=== PATIENT | male | born 1995 | race Hispanic/Latino ===

== ENCOUNTER 2017-02-17 15:32 | Emergency (ER) | payer BC, MEDICAID ==
[2017-02-17 15:32] VITALS: BMI 25.7
[2017-02-17 15:41] VITALS: BP 142/98; PULSE 90; RESP 18; TEMP 98.2; O2SAT 100
--- NOTE | 2017-02-17 17:03 | ED PDOC ---
HPI: Psych/Substance Abuse Time Seen by Provider: 02/17/17 15:39 Chief Complaint (Nursing): Psychiatric Evaluation Additional Complaint(s): Abilio Hunter is a 21 year old male, with a previous medical history of depression, bipolar disorder and anxiety, who presents to the ED via EMS secondary to his friend calling after the patient threatened to commit suicide by hanging himself off a bridge. Patient reports to being in an argument with his friend who was not seeing his side of the argument which prompted his suicidal threat. Patient states he must "go to extremes" in order for his friend to listen to him. Patient currently denies any suicidal ideation, homicidal ideation, auditory hallucinations or visual hallucinations. PMD: none provided Past Medical History Vital Signs: Last Vital Signs Temp 98.2 F 02/17/17 15:38 Pulse 90 02/17/17 15:38 Resp 18 02/17/17 15:38 BP 142/98 H 02/17/17 15:38 Pulse Ox 100 02/17/17 15:38 - Medical History PMH: Anxiety, Bipolar Disorder, Depression, Hepatitis, HTN (no meds), Kidney Stones, Chronic Kidney Disease (Renal cyst, kidney stones) Denies: Diabetes, HIV, Seizures, Sexually Transmitted Disease - Surgical History Surgical History: No Surg Hx - Family History Family History: States: Unknown Family Hx - Immunization History Hx Tetanus Toxoid Vaccination: No Hx Influenza Vaccination: No Hx Pneumococcal Vaccination: No - Home Medications Home Medications: Ambulatory Orders Medication Instructions Recorded No Known Home Med 12/26/16 - Allergies Allergies/Adverse Reactions: Allergies Allergy/AdvReac Type Severity Reaction Status Date / Time No Known Allergies Allergy Verified 12/26/16 01:15 Review of Systems ROS Statement: Except As Marked, All Systems Reviewed And Found Negative Psych: Negative for: Suicidal ideation, Other (homicidal ideation, hallucinations ) Physical Exam - Reviewed Nursing Documentation Reviewed: Yes Vital Signs Reviewed: Yes - Physical Exam Appears: Positive for: Well, Non-toxic, No Acute Distress Head Exam: Positive for: ATRAUMATIC, NORMAL INSPECTION, NORMOCEPHALIC Skin: Positive for: Normal Color, Warm, DRY Eye Exam: Positive for: EOMI, Normal appearance, PERRL ENT: Positive for: Normal ENT Inspection Neck: Positive for: Normal, Painless ROM Cardiovascular/Chest: Positive for: Regular Rate, Rhythm Respiratory: Positive for: CNT, Normal Breath Sounds Gastrointestinal/Abdominal: Positive for: Normal Exam, Bowel Sounds, Soft Back: Positive for: Normal Inspection Extremity: Positive for: Normal ROM Neurologic/Psych: Positive for: Alert, Oriented - ECG O2 Sat by Pulse Oximetry: 100 (RA) Pulse Ox Interpretation: Normal Medical Decision Making Medical Decision Making: Initial Impression: crisis evaluation Initial Plan: * physical exam * crisis evaluation Scribe Attestation: Documented by Luz Wei, acting as a scribe for Irene Sotelo PA-C. Provider Scribe Attestation: All medical record entries made by the Scribe were at my direction and personally dictated by me. I have reviewed the chart and agree that the record accurately reflects my personal performance of the history, physical exam, medical decision making, and the department course for this patient. I have also personally directed, reviewed, and agree with the discharge instructions and disposition. Disposition - Clinical Impression Clinical Impression: Schizoaffective disorder Counseled Patient/Family Regarding: Studies Performed, Diagnosis, Need For Followup - Disposition Referrals: [facility] [Outside] Disposition: Routine/Home Disposition Time: 17:29 Condition: GOOD Instructions: Schizoaffective Disorder (ED)
== END 2017-02-17 17:38 | disposition home or self-care (01) ==
LOC: H.ER 15:32
DX: F25.9 Schizoaffective disorder, unspecified (principal); F31.9 Bipolar disorder, unspecified; F41.9 Anxiety disorder, unspecified; I10 Essential (primary) hypertension

== ENCOUNTER 2017-09-04 04:03 | Emergency (ER) | payer BC, MEDICAID ==
[2017-09-04 04:03] VITALS: BMI 25.7
--- NOTE | 2017-09-04 04:31 | ED PDOC ---
HPI: Psych/Substance Abuse Time Seen by Provider: 09/04/17 04:06 Chief Complaint (Nursing): Anxiety Chief Complaint (Provider): Anxiety History Per: Patient Additional Complaint(s): 21 yo male, Hx of Bipolar disorder, presents to ED BIB [facility] in order to undergo medical and psychiatric clearance for incarceration., Pt tearful at bedside, reports he is ashamed. Uses Crytal Meth daily, last at 1500. Pt report she is anxious at this time and he is not sure if it is from the drugs or the arrest. No homicidal or suicidal ideations Past Medical History Reviewed: Nursing Documentation, Vital Signs Vital Signs: Last Vital Signs Temp 97.9 F 09/04/17 04:09 Pulse 99 H 09/04/17 04:09 Resp 18 09/04/17 04:09 BP 151/72 H 09/04/17 04:09 Pulse Ox 100 09/04/17 04:09 - Medical History PMH: Anxiety, Bipolar Disorder, Depression, Hepatitis, HTN (no meds), Kidney Stones, Chronic Kidney Disease (Renal cyst, kidney stones) Denies: Diabetes, HIV, Seizures, Sexually Transmitted Disease - Family History Family History: States: Unknown Family Hx - Social History Alcohol: Social Drugs: Cannabis, Cocaine, Methamphetamine - Immunization History Hx Tetanus Toxoid Vaccination: No Hx Influenza Vaccination: No Hx Pneumococcal Vaccination: No - Home Medications Home Medications: Ambulatory Orders Medication Instructions Recorded No Known Home Med 12/26/16 - Allergies Allergies/Adverse Reactions: Allergies Allergy/AdvReac Type Severity Reaction Status Date / Time No Known Allergies Allergy Verified 09/04/17 04:09 Physical Exam - Reviewed Nursing Documentation Reviewed: Yes Vital Signs Reviewed: Yes - Physical Exam Appears: Positive for: Well, Non-toxic, No Acute Distress Head Exam: Positive for: ATRAUMATIC, NORMAL INSPECTION, NORMOCEPHALIC Skin: Positive for: Normal Color, Warm, DRY Eye Exam: Positive for: EOMI, Normal appearance, PERRL ENT: Positive for: Normal ENT Inspection Neck: Positive for: Normal, Painless ROM Cardiovascular/Chest: Positive for: Regular Rate, Rhythm Respiratory: Positive for: CNT, Normal Breath Sounds Gastrointestinal/Abdominal: Positive for: Normal Exam, Bowel Sounds, Soft Back: Positive for: Normal Inspection Extremity: Positive for: Normal ROM Neurologic/Psych: Positive for: Alert, Oriented - ECG O2 Sat by Pulse Oximetry: 100 Medical Decision Making Medical Decision Making: Ativan 1 mg IM administered Pt underwent crisis eval, see note Disposition - Clinical Impression Clinical Impression: Substance-induced anxiety disorder - Disposition Referrals: Mert Ramírez MD [Primary Care Provider] - Disposition Time: 05:20 Condition: STABLE Additional Instructions: Patient is medically and psychiatrically cleared for incarceration at this time Instructions: Methamphetamine Abuse (ED) Forms: [employer] (Uzbek)
[2017-09-04 04:46] VITALS: BP 151/72; PULSE 99; RESP 18; TEMP 97.9; O2SAT 100
== END 2017-09-04 05:29 ==
LOC: H.ER 04:03
DX: F19.94 Other psychoactive substance use, unspecified with psychoactive substance-induced mood disorder (principal); F31.9 Bipolar disorder, unspecified; F41.9 Anxiety disorder, unspecified; I10 Essential (primary) hypertension
CPT/HCPCS: 96372; 99283; J2060

== ENCOUNTER 2018-01-22 00:04 | Emergency (ER) | payer BC, MEDICAID ==
[2018-01-22 00:05] VITALS: BMI 25.7
[2018-01-22 00:23] VITALS: BP 144/94; PULSE 76; RESP 16; TEMP 98.9; O2SAT 98
[2018-01-22 01:39] LABS: BASO % 0.5 % (0.0-2.0); EOS # 0.1 K/uL (0.0-0.7); EOS % 1.7 % (0.0-4.0); HEMOGLOBIN 13.6 g/dL (12.0-18.0); LYMPH # 1.3 K/uL (1.0-4.3); LYMPH % 15.1 % (20.0-40.0); MEAN CELL VOLUME 89.2 fl (80.0-94.0); MEAN CORPUSCULAR HEMOGLOBIN 30.4 pg (27.0-31.0); MEAN CORPUSCULAR HGB CONC 34.1 g/dL (33.0-37.0); MONO # 0.6 K/uL (0.0-0.8); MONO % 7.1 % (0.0-10.0); NEUT # 6.6 K/uL (1.8-7.0); NEUT % 75.6 % (50.0-75.0); NRBC % 0.1 % (0.0-0.0); RBC 4.48 Mil/uL (4.40-5.90); RED CELL DISTRIBUTION WIDTH 14.2 % (11.5-14.5); WHITE BLOOD COUNT 8.8 K/uL (4.8-10.8)
[2018-01-22 01:45] LABS: BLOOD UREA NITROGEN 17 mg/dl (9-20); CALCIUM 9.1 mg/dL (8.4-10.2); GFR AFRICAN-AMERICAN > 60; GFR NON-AFRICAN AMERICAN > 60
--- NOTE | 2018-01-22 02:53 | ED PDOC ---
HPI: Psych/Substance Abuse Time Seen by Provider: 01/22/18 00:28 Chief Complaint (Nursing): Abdominal Pain Chief Complaint (Provider): Evaluation History Per: Patient History/Exam Limitations: no limitations Suicide/Self Injury Attempted (Context): None Additional Complaint(s): 22 year old male presents to ED with a request to have his "blood checked" for infection and is well known to this ED and provider for a history of bed- seeking behavior and IV drug abuse. Patient states he was admitted to a [facility] for 1 week for cellulitis and had an elevated WBC count during his stay. Patient states he was discharged due to lack of insurance. (-) fever, chills, nausea, vomiting, or diarrhea. Patient admits to actively engaging to IV heroin abuse. States that the cellulitis was present in the right antecubital area, which is the area in which he injects heroin. PCP: [facility] Past Medical History Reviewed: Historical Data, Nursing Documentation, Vital Signs Vital Signs: Last Vital Signs Temp 98.9 F 01/22/18 00:21 Pulse 76 01/22/18 00:21 Resp 16 01/22/18 00:21 BP 144/94 H 01/22/18 00:21 Pulse Ox 98 01/22/18 00:21 - Medical History PMH: Anxiety, Bipolar Disorder, Depression, Hepatitis, HTN (no meds), Kidney Stones, Chronic Kidney Disease (Renal cyst, kidney stones) Denies: Diabetes, HIV, Seizures, Sexually Transmitted Disease - Family History Family History: States: Unknown Family Hx - Social History Current smoker - smoking cessation education provided: Yes Ex-Smoker (has not smoked in the last 12 months): No Alcohol: Other ((+) drinker) Drugs: Opiates - Immunization History Hx Tetanus Toxoid Vaccination: No Hx Influenza Vaccination: No Hx Pneumococcal Vaccination: No - Home Medications Home Medications: Ambulatory Orders Medication Instructions Recorded No Known Home Med 12/26/16 - Allergies Allergies/Adverse Reactions: Allergies Allergy/AdvReac Type Severity Reaction Status Date / Time No Known Allergies Allergy Verified 01/22/18 00:21 Review of Systems ROS Statement: Except As Marked, All Systems Reviewed And Found Negative Constitutional: Negative for: Fever, Chills Gastrointestinal: Negative for: Nausea, Vomiting, Diarrhea Physical Exam - Reviewed Nursing Documentation Reviewed: Yes Vital Signs Reviewed: Yes - Physical Exam Appears: Positive for: Non-toxic, No Acute Distress Skin: Positive for: Warm, Dry. Negative for: Normal Color (multiple IV track gutierrez to the neck and bilateral arms) Cardiovascular/Chest: Positive for: Regular Rate, Rhythm Respiratory: Positive for: Normal Breath Sounds. Negative for: Respiratory Distress Gastrointestinal/Abdominal: Positive for: Soft. Negative for: Tenderness Neurologic/Psych: Positive for: Alert, Oriented. Negative for: Motor/Sensory Deficits - Laboratory Results Result Diagrams: 01/22/18 01:30 01/22/18 01:30 - ECG O2 Sat by Pulse Oximetry: 98 (RA) Pulse Ox Interpretation: Normal Medical Decision Making Medical Decision Makin Initial impression: history of IV drug abuse Initial plan: * EtOH serum * Labs * UDrug screen * Blood culture 0318 Labs reviewed: no clinically significant abnormalities. Patient is stable for discharge home. Dx: heroin abuse Scribe Attestation: Documented by Alyx Jesus acting as a scribe Beni Savage MD. Scribe Attestation: All medical record entries made by the Scribe were at my direction and personally dictated by me. I have reviewed the chart and agree that the record accurately reflects my personal performance of the history, physical exam, medical decision making, and the department course for this patient. I have also personally directed, reviewed, and agree with the discharge instructions and disposition. Disposition - Clinical Impression Clinical Impression: Heroin abuse - Disposition Disposition: Routine/Home Disposition Time: 03:19 Condition: STABLE Instructions: Opioid Use Disorder Forms: [employer] (Khmer)
== END 2018-01-22 05:16 | disposition home or self-care (01) ==
LOC: H.ER 00:04
DX: F11.10 Opioid abuse, uncomplicated (principal); F31.9 Bipolar disorder, unspecified; F41.9 Anxiety disorder, unspecified; I10 Essential (primary) hypertension

== ENCOUNTER 2018-01-22 06:03 | Emergency (ER) | payer MEDICAID ==
[2018-01-22 06:03] VITALS: BMI 25.7
--- NOTE | 2018-01-22 07:11 | ED PDOC ---
HPI: Psych/Substance Abuse Time Seen by Provider: 01/22/18 06:25 Chief Complaint (Nursing): Substance Abuse Chief Complaint (Provider): Suicidal Ideation History Per: Patient History/Exam Limitations: no limitations Suicide/Self Injury Attempted (Context): None Additional Complaint(s): 22 year old male presents to ED with complaints of suicidal ideation and has a past medical history of IV drug abuse. Patient is known to the ED and provider and was discharged 2 hours ago after a request to have his "blood checked". Patient believes he is going through withdrawal. PCP: None Past Medical History Reviewed: Historical Data, Nursing Documentation, Vital Signs Vital Signs: Last Vital Signs Temp 98.6 F 01/22/18 06:18 Pulse 86 01/22/18 06:18 Resp 16 01/22/18 06:18 BP Pulse Ox 100 01/22/18 06:18 - Medical History PMH: Anxiety, Bipolar Disorder, Depression, Hepatitis, HTN (no meds), Kidney Stones, Chronic Kidney Disease (Renal cyst, kidney stones) Denies: Diabetes, HIV, Seizures, Sexually Transmitted Disease - Family History Family History: States: Unknown Family Hx - Social History Current smoker - smoking cessation education provided: Yes Alcohol: Other ((+) drinker) Drugs: Opiates - Immunization History Hx Tetanus Toxoid Vaccination: No Hx Influenza Vaccination: No Hx Pneumococcal Vaccination: No - Home Medications Home Medications: Ambulatory Orders Medication Instructions Recorded No Known Home Med 12/26/16 - Allergies Allergies/Adverse Reactions: Allergies Allergy/AdvReac Type Severity Reaction Status Date / Time No Known Allergies Allergy Verified 01/22/18 06:18 Review of Systems ROS Statement: Except As Marked, All Systems Reviewed And Found Negative Psych: Positive for: Suicidal ideation Physical Exam - Reviewed Nursing Documentation Reviewed: Yes Vital Signs Reviewed: Yes - Physical Exam Appears: Positive for: Non-toxic, No Acute Distress Head Exam: Positive for: ATRAUMATIC, NORMOCEPHALIC Skin: Positive for: Normal Color, Warm, Dry Eye Exam: Positive for: EOMI, Normal appearance, PERRL ENT: Positive for: Normal ENT Inspection Neck: Positive for: Normal, Painless ROM Cardiovascular/Chest: Positive for: Regular Rate, Rhythm. Negative for: Bradycardia Respiratory: Positive for: Normal Breath Sounds. Negative for: Respiratory Distress Gastrointestinal/Abdominal: Positive for: Normal Exam, Soft. Negative for: Tenderness Back: Positive for: Normal Inspection Extremity: Positive for: Normal ROM. Negative for: Deformity Neurologic/Psych: Positive for: Alert, Oriented. Negative for: Motor/Sensory Deficits - ECG O2 Sat by Pulse Oximetry: 100 (RA) Pulse Ox Interpretation: Normal Medical Decision Making Medical Decision Makin Initial impression: malingering disorder in setting of drug abuse Initial plan: * crisis eval 0700 Patient will be signed out to Dr. Mayer pending crisis evaluation. Scribe Attestation: Documented by Alyx Jesus acting as a scribe Beni Savage MD. Scribe Attestation: All medical record entries made by the Scribe were at my direction and personally dictated by me. I have reviewed the chart and agree that the record accurately reflects my personal performance of the history, physical exam, medical decision making, and the department course for this patient. I have also personally directed, reviewed, and agree with the discharge instructions and disposition. Disposition - Clinical Impression Clinical Impression: Substance addiction - Patient ED Disposition Is Patient to be Admitted: Transfer of Care - Disposition Referrals: [facility] [Outside] Disposition: Transfer of Care Disposition Time: 07:00 Condition: STABLE Instructions: Drug Abuse and Drug Addiction (DC) Forms: FP Complete (Peruvian) Patient Signed Over To: Zac Mayer Handoff Comments: pending crisis evaluation
--- NOTE | 2018-01-22 07:13 | ED PDOC ---
- ECG O2 Sat by Pulse Oximetry: 100 (RA) - Progress Re-evaluation Time: :23 Condition: Re-examined (Awake alert oriented x 3 denies SI/HI) Medical Decision Making Medical Decision Making: Time: 0700 --Patient was endorsed to provider from Dr. Beni Savage. Pending crisis evaluation. Scribe Attestation: Documented by Eve Wall, acting as a scribe for Zac Mayer MD. Provider Scribe Attestation: All medical record entries made by the Scribe were at my direction and personally dictated by me. I have reviewed the chart and agree that the record accurately reflects my personal performance of the history, physical exam, medical decision making, and the department course for this patient. I have also personally directed, reviewed, and agree with the discharge instructions and disposition. Disposition - Clinical Impression Clinical Impression: Substance addiction - POA Present On Arrival: None - Disposition Referrals: [facility] [Outside] Disposition: Routine/Home Disposition Time: :23 Condition: STABLE Instructions: Drug Abuse and Drug Addiction (DC) Forms: [employer] (Northern Irish)
[2018-01-22 09:30] VITALS: BP 120/70; RESP 20
[2018-01-22 09:35] VITALS: PULSE 74; TEMP 98.6
[2018-01-23 04:36] VITALS: O2SAT 100
== END 2018-01-22 09:35 | disposition home or self-care (01) ==
LOC: H.ER 06:03
DX: R45.851 Suicidal ideations (principal); F19.10 Other psychoactive substance abuse, uncomplicated; F31.9 Bipolar disorder, unspecified; F41.9 Anxiety disorder, unspecified; I10 Essential (primary) hypertension

== ENCOUNTER 2018-01-22 15:22 | Inpatient (IN) | payer MEDICAID ==
[2018-01-22 15:22] VITALS: BMI 25.7
[2018-01-22 17:20] VITALS: O2SAT 99
--- NOTE | 2018-01-22 19:41 | ED PDOC ---
HPI: Psych/Substance Abuse Time Seen by Provider: 01/22/18 18:30 Chief Complaint (Nursing): Psychiatric Evaluation History Per: Patient Additional Complaint(s): Pt. states today he developed visual hallucinations. States he sees spider webs and "extra rooms." Reports that his friend also found him attmepting to cut his forearm with a knife. Pt. states he was unsuccessful. Pt. is still feeling suicidal. Denies HI, chest pain, SOB, abd pain, fever, headache, injury. Past Medical History Reviewed: Historical Data, Nursing Documentation, Vital Signs Vital Signs: Last Vital Signs Temp 98.4 F 01/22/18 17:15 Pulse 88 01/22/18 17:15 Resp 18 01/22/18 17:15 BP 136/87 01/22/18 17:15 Pulse Ox 99 01/22/18 17:15 - Medical History PMH: Anxiety, Bipolar Disorder, Depression, Hepatitis, HTN (no meds), Kidney Stones, Chronic Kidney Disease (Renal cyst, kidney stones) Denies: Diabetes, HIV, Seizures, Sexually Transmitted Disease - Surgical History Surgical History: No Surg Hx - Family History Family History: States: No Known Family Hx - Immunization History Hx Tetanus Toxoid Vaccination: No Hx Influenza Vaccination: No Hx Pneumococcal Vaccination: No - Home Medications Home Medications: Ambulatory Orders Medication Instructions Recorded No Known Home Med 12/26/16 - Allergies Allergies/Adverse Reactions: Allergies Allergy/AdvReac Type Severity Reaction Status Date / Time No Known Allergies Allergy Verified 01/22/18 06:18 Review of Systems ROS Statement: Except As Marked, All Systems Reviewed And Found Negative Physical Exam - Reviewed Nursing Documentation Reviewed: Yes Vital Signs Reviewed: Yes - Physical Exam Appears: Positive for: Well, Non-toxic, No Acute Distress Head Exam: Positive for: ATRAUMATIC, NORMAL INSPECTION, NORMOCEPHALIC Skin: Positive for: Normal Color, Warm. Negative for: Rash Eye Exam: Positive for: EOMI, Normal appearance, PERRL ENT: Positive for: Normal ENT Inspection Neck: Positive for: Normal, Painless ROM Cardiovascular/Chest: Positive for: Regular Rate, Rhythm Respiratory: Positive for: CNT, Normal Breath Sounds Gastrointestinal/Abdominal: Positive for: Normal Exam, Soft. Negative for: Tenderness Back: Positive for: Normal Inspection Extremity: Positive for: Normal ROM Neurologic/Psych: Positive for: Alert, Oriented, Mood/Affect (calm, cooperative) . Negative for: Aphasia, Facial Droop - ECG O2 Sat by Pulse Oximetry: 99 - Progress ED Course And Treament: Ana perea, 1:1 ordered. Pt. evaluated by ana Kwong, who spoke with Dr. Buckley who requests pt. to be admitted. Pt had blood work done earlier today which was normal. Drug screen, serum alcohol, UA ordered. Disposition - Clinical Impression Clinical Impression: Bipolar affective disorder - Patient ED Disposition Is Patient to be Admitted: Yes - Disposition Disposition Time: 19:44 Condition: STABLE Forms: [employer] (Pashto)
[2018-01-22 19:47] LABS: URINE AMORPHOUS SEDIMENT FEW /ul (<OCC); URINE BILIRUBIN NEGATIVE (NEGATIVE); URINE BLOOD NEGATIVE (NEGATIVE); URINE CLARITY TURBID (Clear); URINE COLOR YELLOW (YELLOW); URINE GLUCOSE (UA) NEG (Normal); URINE LEUKOCYTE ESTERASE NEG Leu/uL (Negative); URINE PROTEIN NEGATIVE (NEGATIVE); URINE UROBILINOGEN 0.2-1.0 mg/dL (0.2-1.0)
[2018-01-22 19:59] LABS: BARBITURATES, UR NEGATIVE (NEGATIVE); BENZODIAZEPINES, UR NEGATIVE (NEGATIVE); OPIATES, UR POSITIVE (NEGATIVE); PHENCYCLIDINE, UR NEGATIVE (NEGATIVE)
[2018-01-22] MEDS ORDERED: Alum-Mag Hydrox-Simethicone Susp (30 mL) PO PRN (22:15)
[2018-01-22] MEDS ORDERED: Magnesium Hydroxide Susp 30 ml UD PO PRN (22:15)
[2018-01-22] MEDS ORDERED: DiphenhydrAMINE 50 mg/ml Inj IM PRN (22:15)
--- NOTE | 2018-01-23 04:16 | PCM.BM ---
<Marline Pearce - Last Filed: 01/23/18 04:14> Treatment Plan Problems - Problems identified on initial assessmt Feelings of Worthlessness Date Initiated: 01/23/18 Time Initiated: 04:14 Assessment reference: NA Status: Active Treatment assets and liabiliti Patient Assests: cooperative, physically healthy, negotiates basic needs Patient Liabilities: poor support system, substance abuse, legal issue - Milieu Protocol Maintain good personal hygiene: daily Assist patient to perform ADL's, every shift Encourage regular showers, every shift Remind patient to perform daily oral care Conduct patient checks and document Observation sheet: Q15 minutes Maintain personal safety: every shift Educate patient to report safety concerns to staff, every shift Monitor environment for contraband/sharps Medication safety: Monitor for expected outcome, potential side effects: every shift, Assess barriers to learning: every shift, Assess readiness for medication education: every shift <ValarieBrandoRonna - Last Filed: 01/25/18 12:02> Treatment assets and liabiliti Patient Assests: adapts well, cooperative, resourceful, self-reliant, ADL independent, physically healthy, negotiates basic needs, cognitively intact ( some delays) Patient Liabilities: live alone (pt. currently/recently homeless), financial problems, poor support system, relationship conflicts, substance abuse, legal issue Family Contact Family involvement: Family/SO is involved (limited) Family contact: Patient declines to allow family contact at present - Goals for Treatment Patient goals for treatment: Patient to continue stabilization on 3NP through medication management and group/supportive therapy. Patient to be encouraged to attend groups regularly to promote self-awareness, compliance, and improve insight, coping skills, and self-esteem. Patient to be provided with referral for appropriate level of aftercare to reduce risk of future hospitalizations and ensure safety in the community. Pt ambivalent towards inpatient rehab referrals but agreeable. pt. to be provided with referral fo [facility] upon discharge is rehab bed cannot be secured. Pt. expressed understanding of the above. Discharge/Continuing Care - Education Needs Education Needs: Patient Medication, Patient Diagnosis/Disease Process, Patient Coping Skills, Patient Community resources, Patient Aftercare Safety Plan - Discharge Discharge Criteria: Tolerates medication w/o severe side effects, Free of Suicidal thoughts, Normal sleep pattern, Ability to care for self, No longer exhibiting s/s of withdrawal, Reduction of target symptoms Discharge to:: Skilled Nursing, Substance Abuse Rehab (referrals to be faxed), Other ( referrals to OPS/[facility] to be sent if rehab bed cannot be secured) <Vaibhav Nelson - Last Filed: 01/28/18 14:08> Discharge/Continuing Care - Additional Comments 01/28/18 14:08 Pt offered no questions or complaints at this time. Pt is discharged focused but agreeable to stay through the weekend. - Treatment Team Participation Discussed with Family/SO: No Was Patient/Family/SO present at Treatment Team Meeting: Yes <Andre Oconnell - Last Filed: 01/29/18 09:42> - Diagnosis (1) Depression Status: Acute Interventions: pharmacotherapy 01/29/18 09:42
[2018-01-23 06:42] LABS: T4 10.7 ug/dl (5.5-11.0)
[2018-01-23] MEDS: Multivitamin With Minerals Tab PO SCH (09:43)
--- NOTE | 2018-01-23 15:01 | PCM.PSYCH ---
Initial Psychiatric Evaluation - Initial Psychiatric Evaluation Type of Admission: Voluntary Legal Status: Capacity Chief Complaint (in patient's own words): I am depressed and suicidal Patient's Reaction to Hospitalization: pt requested help History of Present Illness and Precipitating Events: pt is 22 ys old male with previous diagnosis of polysubstance use and bipolar disorder, non compliant with medication or follow up, pt relapsed on opiates, cocaine and cannabis, starting feeling increasingly depressed, on day of evaluation, he started experiencing suicidal ideations with plan to jump off the bridge came to ER seeking help pt on unit depressed anhedonic with low energy, expressing passive suicidal ideations without active plan or intent on the unit denied homicidal ideations, denied command hallucinations Current Medications: Active Medications Generic Name Dose Route Start Last Admin Trade Name Freq PRN Reason Stop Dose Admin Acetaminophen 650 mg 01/22/18 22:15 Tylenol 325mg Tab PO Q4 PRN Pain, moderate (4-7) Al Hydrox/Mg Hydrox/Simethicone 30 ml 01/22/18 22:15 Maalox Plus 30 Ml PO Q4 PRN Dyspepsia Bupropion HCl 75 mg 01/24/18 09:00 Wellbutrin PO DAILY ЕЛЕНА Clonidine HCl 0.1 mg 01/23/18 01:00 01/23/18 09:43 Catapres PO 01/26/18 01:01 0.1 mg Q8 ЕЛЕНА Administration Diphenhydramine HCl 50 mg 01/22/18 22:15 Benadryl IM Q6 PRN Extrapyramidal S/S Unable PO Diphenhydramine HCl 50 mg 01/22/18 22:15 Benadryl PO Q6 PRN Extrapyramidal Symptoms Diphenhydramine HCl 50 mg 01/22/18 23:34 Benadryl PO HS PRN Sleep Haloperidol 5 mg 01/22/18 22:15 Haldol PO Q4 PRN Agitation Haloperidol Lactate 5 mg 01/22/18 22:15 Haldol IM Q4 PRN Agitation, Unable to Take PO Ibuprofen 400 mg 01/22/18 22:15 Motrin Tab PO Q6 PRN pain of 7-10 Lorazepam 2 mg 01/22/18 22:15 Ativan IM Q4 PRN Anxiety/Agitation,Unable PO Lorazepam 1 mg 01/22/18 22:15 Ativan PO Q4 PRN Anxiety/Agitation Magnesium Hydroxide 30 ml 01/22/18 22:15 Milk Of Magnesia PO HS PRN Constipation Multivitamins/Minerals 1 tab 01/23/18 09:00 01/23/18 09:43 Therapeutic-M Tab PO 1 tab DAILY ЕЛЕНА Administration Quetiapine Fumarate 100 mg 01/23/18 22:00 Seroquel PO HS ЕЛЕНА Past Psychiatric History - Past Psychiatric History Explanation of prior treatment: multiple inpatient hospitalizations, hx of non compliance History of ETOH/Drug Use: hx of cocaine, cannabis, opiate use Pertinent Medical Hx (Current Medical&Sleep Prob, Allergies): Allergies Allergy/AdvReac Type Severity Reaction Status Date / Time No Known Allergies Allergy Verified 01/22/18 06:18 No Known Home Med 12/26/16 Mental Status Examination - Personal Presentation Personal Presentation: Looks stated age - Affect Affect: Constricted, Depressed - Motor Activity Motor Activity: Psychomotor Retardation - Reliability in Providing Information Reliability in Providing Information: Poor, due to altered mood - Speech Speech: Tangential - Mood Mood: Depressed, Anxious - Formal Thought Process Formal Thought Process: Circumstantial - Hallucinations/Delusions Additional comments: denied perceptual disturbances, non elicited - Obsessions/Compulsions Obsessions: No Compulsions: No - Cognitive Functions Orientation: Person, Place Abstract Thinking: [place] Judgement: Imparied, as evidence by: Poor judgement, Imparied, as evidence by: Lack of insight into illness - Risk Risk: Withdrawal, Diminished functioning - Strength & Assets Inventory Strength & Assets Inventory: Life experience - Limitations Additional comments: poor compliance DSM 5 DX - DSM 5 DSM 5 Diagnosis: 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
--- NOTE | 2018-01-23 17:20 | CP.PCM.CON ---
History of Present Illness - History of Present Illness History of Present Illness: CC: Suicidal ideation This is a 22 year old male presenting to the ED with suicidal ideations, visual hallucinations, and was found attempting to cut his forearm with a knife ( unsuccessfully. ) According to the chart the patient has history of hepatitis, polysubstance abuse with opiates, cocaine, and cannabis, hypertension, with history of nephrolithiasis. I attempted to see the patient in his room, however he is refusing to give any history or physical exam. He refused to give any review of systems. Review of Systems - Review of Systems Review of Systems: Patient refused to give review of systems and was uncooperative. Past Patient History - Infectious Disease Hx of Infectious Diseases: None - Past Medical History & Family History Past Medical History?: Yes - Past Social History Smoking Status: Light Smoker < 10 Cigarettes Daily - CARDIAC Hx Cardiac Disorders: No Hx Hypertension: Yes (no meds) - PULMONARY Hx Tuberculosis: No - NEUROLOGICAL HX Cerebrovascular Accident: No Hx Seizures: No - HEENT Hx HEENT Problems: No Other/Comment: wears contact unable to see well - RENAL Hx Chronic Kidney Disease: Yes (Renal cyst, kidney stones) Hx Kidney Stones: Yes - ENDOCRINE/METABOLIC Hx Endocrine Disorders: No - HEMATOLOGICAL/ONCOLOGICAL Hx Cancer: No Hx Human Immunodeficiency Virus (HIV): No - INTEGUMENTARY Hx Dermatological Problems: No - MUSCULOSKELETAL/RHEUMATOLOGICAL Hx Musculoskeletal Disorders: Yes (FX lt hand) - GASTROINTESTINAL Hx Gastrointestinal Disorders: No - GENITOURINARY/GYNECOLOGICAL Hx Sexually Transmitted Disorders: No - PSYCHIATRIC Hx Substance Use: Yes - SURGICAL HISTORY Hx Surgeries: Yes Other/Comment: RENAL CYST-STENT PLACEMENT x3, lithotripsy - ANESTHESIA Hx Anesthesia: Yes Hx Anesthesia Reactions: No Meds Allergies/Adverse Reactions: Allergies Allergy/AdvReac Type Severity Reaction Status Date / Time No Known Allergies Allergy Verified 01/22/18 06:18 - Medications Medications: Current Medications Acetaminophen (Tylenol 325mg Tab) 650 mg PO Q4 PRN PRN Reason: Pain, moderate (4-7) Al Hydrox/Mg Hydrox/Simethicone (Maalox Plus 30 Ml) 30 ml PO Q4 PRN PRN Reason: Dyspepsia Bupropion HCl (Wellbutrin) 75 mg PO DAILY ЕЛЕНА Clonidine HCl (Catapres) 0.1 mg PO Q8 ЕЛЕНА Stop: 01/26/18 01:01 Last Admin: 01/23/18 09:43 Dose: 0.1 mg Diphenhydramine HCl (Benadryl) 50 mg IM Q6 PRN PRN Reason: Extrapyramidal S/S Unable PO Diphenhydramine HCl (Benadryl) 50 mg PO Q6 PRN PRN Reason: Extrapyramidal Symptoms Diphenhydramine HCl (Benadryl) 50 mg PO HS PRN PRN Reason: Sleep Gabapentin (Neurontin) 100 mg PO TID ЕЛЕНА Haloperidol (Haldol) 5 mg PO Q4 PRN PRN Reason: Agitation Haloperidol Lactate (Haldol) 5 mg IM Q4 PRN PRN Reason: Agitation, Unable to Take PO Ibuprofen (Motrin Tab) 400 mg PO Q6 PRN PRN Reason: pain of 7-10 Lorazepam (Ativan) 2 mg IM Q4 PRN PRN Reason: Anxiety/Agitation,Unable PO Lorazepam (Ativan) 1 mg PO Q4 PRN PRN Reason: Anxiety/Agitation Magnesium Hydroxide (Milk Of Magnesia) 30 ml PO HS PRN PRN Reason: Constipation Multivitamins/Minerals (Therapeutic-M Tab) 1 tab PO DAILY [facility] Last Admin: 01/23/18 09:43 Dose: 1 tab Quetiapine Fumarate (Seroquel) 100 mg PO HS [facility] Physical Exam - Additional Findings Additional findings: Unable to be examined as patient refused exam and is uncooperative. Results - Vital Signs Recent Vital Signs: Last Vital Signs Temp 97.7 F 01/23/18 09:00 Pulse 81 01/23/18 09:43 Resp 18 01/23/18 09:00 BP 130/99 H 01/23/18 09:43 Pulse Ox 99 01/22/18 19:54 - Labs Labs: Laboratory Results - last 24 hr 01/22/18 01/22/18 01/22/18 19:35 19:35 19:40 Hemoglobin A1c Triglycerides Cholesterol LDL Cholesterol Direct HDL Cholesterol Thyroxine (T4) TSH 3rd Generation Urine Color Yellow Urine Clarity Turbid Urine pH 7.0 Ur Specific [place] 1.015 Urine Protein Negative Urine Glucose (UA) Neg Urine Ketones Negative Urine Blood Negative Urine Nitrate Negative Urine Bilirubin Negative Urine Urobilinogen 0.2-1.0 Ur Leukocyte Esterase Neg Urine RBC (Auto) 4 H Urine Microscopic WBC 18 H Amorphous Sediment Few H Urine Opiates Screen Positive H Urine Methadone Screen Negative Ur Barbiturates Screen Negative Ur Phencyclidine Scrn Negative Ur Amphetamines Screen Negative U Benzodiazepines Scrn Negative U Oth Cocaine Metabols Positive H U Cannabinoids Screen Positive H Alcohol, Quantitative < 10 01/23/18 01/23/18 05:30 05:30 Hemoglobin A1c 5.5 Triglycerides 51 Cholesterol 176 LDL Cholesterol Direct 86 HDL Cholesterol 59 Thyroxine (T4) 10.7 TSH 3rd Generation 0.22 L Urine Color Urine Clarity Urine pH Ur Specific [place] Urine Protein Urine Glucose (UA) Urine Ketones Urine Blood Urine Nitrate Urine Bilirubin Urine Urobilinogen Ur Leukocyte Esterase Urine RBC (Auto) Urine Microscopic WBC Amorphous Sediment Urine Opiates Screen Urine Methadone Screen Ur Barbiturates Screen Ur Phencyclidine Scrn Ur Amphetamines Screen U Benzodiazepines Scrn U Oth Cocaine Metabols U Cannabinoids Screen Alcohol, Quantitative Assessment & Plan - Assessment and Plan (Free Text) Plan: This is a 22 year old male presenting to the ED with suicidal ideations, visual hallucinations, and was found attempting to cut his forearm with a knife ( unsuccessfully. ) According to the chart the patient has history of hepatitis, polysubstance abuse with opiates, cocaine, and cannabis, hypertension, with history of nephrolithiasis. I attempted to see the patient in his room, however he is refusing to give any history or physical exam. He refused to give any review of systems. Hypertension 130/99 patient recieving clonidine continue to monitor cocaine induced mood disorder with depressive features opite use disorder cocaine use disorder cannabis use disorder hx of bipolar disorder
[2018-01-24] MEDS: Multivitamin With Minerals Tab PO SCH (09:00)
--- NOTE | 2018-01-24 15:35 | PCM.PYCHPN ---
Psychiatric Progress Note - Psychiatric Progress Note Patient seen today, length of contact: pt evaluated discussed with team chart reviewed Patient Chief Complaint: I am very anxious Problems Identified/Issues Discussed: pt on evaluation, reported anxious mood , requesting klonopin , discussed with pt the habit forming effect of klonopin, discussed increasing neurontin pt also presenting with irritable affect and reporting racing thoughts, will gradually uptitrate seroquel pt continues to be depressed, with passive suicidal ideations, denied active plan on the unit, denied homicidal ideations, or command hallucinations motivational therapy provided Medical Problems: multiple inpatient hospitalizations, hx of non compliance DSM 5 Symptoms Update: polysubstance use disorder bipolar disorder Medication Change: Yes (increase seroquel) Medical Record Reviewed: Yes Mental Status Examination - Cognitive Function Orientation: Person, Place Attention: Poor Concentration: Poor Association: WNL Fund of Knowledge: Poor Decription of patient's judgement and insights: poor insight and judgment - Mood Mood: Depressed, Anxious - Affect Affect: Constricted, Depressed - Speech Speech: Loud - Formal Thought Process Formal Thought Process: Circumstantial Psychotic Thoughts and Behaviors: pt denied perceptual disturbances, non elicited - Suicidal Ideation Suicidal Ideation: No - Homicidal Ideation Homicidal Ideation: No Goal/Treatment Plan - Goal/Treatment Plan Need for Continued Stay: Severe depression anxiety, Discharge may exacerbated symptoms Progress Toward Problem(s) and Goals/Treatment Plan: clonidine protocol for opiate withdrawal increase wellbutrin 150mg daily for depression increase neurontin 200mg tid seroquel 200mg qhs motivatonal and group therapy
[2018-01-25] MEDS: buPROPion SR 150 MG TABLET PO SCH (09:21)
[2018-01-25] MEDS: Multivitamin With Minerals Tab PO SCH (09:21)
--- NOTE | 2018-01-25 15:21 | PCM.PYCHPN ---
Psychiatric Progress Note - Psychiatric Progress Note Patient seen today, length of contact: pt evaluated discussed with team chart reviewed Patient Chief Complaint: I am still tired Problems Identified/Issues Discussed: pt on evaluation, continues to be depressed anhedonic, low energy pt also presenting with irritable affect and reporting racing thoughts, will gradually uptitrate seroquel ptdenied any current suicidal ideations denied homicidal ideations, or command hallucinations motivational therapy provided Medical Problems: multiple inpatient hospitalizations, hx of non compliance DSM 5 Symptoms Update: mood disorder due to substance use bipolar disorder Medication Change: Yes (increase seroquel) Medical Record Reviewed: Yes Mental Status Examination - Cognitive Function Orientation: Person, Place Attention: Poor Concentration: Poor Association: WNL Fund of Knowledge: Poor Decription of patient's judgement and insights: poor insight and judgment - Mood Mood: Depressed, Anxious - Affect Affect: Constricted, Depressed - Speech Speech: Loud - Formal Thought Process Formal Thought Process: Circumstantial Psychotic Thoughts and Behaviors: pt denied perceptual disturbances, non elicited - Suicidal Ideation Suicidal Ideation: No - Homicidal Ideation Homicidal Ideation: No Goal/Treatment Plan - Goal/Treatment Plan Need for Continued Stay: Severe depression anxiety, Discharge may exacerbated symptoms Progress Toward Problem(s) and Goals/Treatment Plan: clonidine protocol for opiate withdrawal wellbutrin 150mg daily for depression neurontin 200mg tid increase seroquel 200mg qhs motivatonal and group therapy
[2018-01-26] MEDS: buPROPion SR 150 MG TABLET PO SCH (09:17)
[2018-01-26] MEDS: Multivitamin With Minerals Tab PO SCH (09:18)
--- NOTE | 2018-01-26 15:19 | PCM.PYCHPN ---
Psychiatric Progress Note - Psychiatric Progress Note Patient seen today, length of contact: pt evaluated discussed with team chart reviewed Patient Chief Complaint: I want to do outpatient reahab Problems Identified/Issues Discussed: pt evaluated with treatment team, reported feeling less depressed, pt less irritable , reported racing thoughts are less no side effects of medications reported, motivational therapy provided and discussed with pt need to join rehab on discharge pt agreeable for outpatient [facility] program pt denied any current suicidal ideations denied homicidal ideations, or command hallucinations Medical Problems: multiple inpatient hospitalizations, hx of non compliance DSM 5 Symptoms Update: bipolar disorder polysubstance use disorder Medication Change: No (increase seroquel) Medical Record Reviewed: Yes Mental Status Examination - Cognitive Function Orientation: Person, Place Attention: WNL Concentration: Poor Association: WNL Fund of Knowledge: Poor Decription of patient's judgement and insights: poor insight and judgment - Mood Mood: Depressed, Anxious - Affect Affect: Constricted, Depressed - Speech Speech: Loud - Formal Thought Process Formal Thought Process: Circumstantial Psychotic Thoughts and Behaviors: pt denied perceptual disturbances, non elicited - Suicidal Ideation Suicidal Ideation: No - Homicidal Ideation Homicidal Ideation: No Goal/Treatment Plan - Goal/Treatment Plan Need for Continued Stay: Severe depression anxiety, Discharge may exacerbated symptoms Progress Toward Problem(s) and Goals/Treatment Plan: c wellbutrin 150mg daily for depression neurontin 200mg tid seroquel 300mg qhs motivatonal and group therapy
[2018-01-27] MEDS: buPROPion SR 150 MG TABLET PO SCH (10:16)
[2018-01-27] MEDS: Multivitamin With Minerals Tab PO SCH (10:16)
--- NOTE | 2018-01-27 15:28 | PCM.PYCHPN ---
Psychiatric Progress Note - Psychiatric Progress Note Patient seen today, length of contact: pt evaluated discussed with team chart reviewed Patient Chief Complaint: I am feeling better Problems Identified/Issues Discussed: pt evaluated, more visible on the unit, reported better mood, presenting with brighter affect pt denied any current suicidal ideations denied homicidal ideations, or command hallucinations Medical Problems: multiple inpatient hospitalizations, hx of non compliance DSM 5 Symptoms Update: bipolar disorder polysubstance use disorder Medication Change: No Medical Record Reviewed: Yes Mental Status Examination - Cognitive Function Orientation: Person, Place Attention: WNL Concentration: WNL Association: WNL Fund of Knowledge: Poor Decription of patient's judgement and insights: poor insight and judgment - Mood Mood: Anxious - Affect Affect: Constricted, Depressed - Speech Speech: Loud - Formal Thought Process Formal Thought Process: Circumstantial Psychotic Thoughts and Behaviors: pt denied perceptual disturbances, non elicited - Suicidal Ideation Suicidal Ideation: No - Homicidal Ideation Homicidal Ideation: No Goal/Treatment Plan - Goal/Treatment Plan Need for Continued Stay: Severe depression anxiety, Discharge may exacerbated symptoms Progress Toward Problem(s) and Goals/Treatment Plan: c wellbutrin 150mg daily for depression neurontin 200mg tid seroquel 300mg qhs motivatonal and group therapy
[2018-01-27 18:42] VITALS: BP 128/70; PULSE 89; RESP 18; TEMP 97.1
[2018-01-28] MEDS: Multivitamin With Minerals Tab PO SCH (09:13)
[2018-01-28] MEDS: buPROPion SR 150 MG TABLET PO SCH (09:13)
--- NOTE | 2018-01-28 14:36 | PCM.PYCHPN ---
Psychiatric Progress Note - Psychiatric Progress Note Patient seen today, length of contact: pt evaluated discussed with team chart reviewed Patient Chief Complaint: I am alright when can I leave Problems Identified/Issues Discussed: pt evaluated, more visible on the unit, reported better mood, presenting with brighter affect pt denied any current suicidal ideations denied homicidal ideations, or command hallucinations Medical Problems: multiple inpatient hospitalizations, hx of non compliance DSM 5 Symptoms Update: bipolar disorder Medication Change: No Medical Record Reviewed: Yes Mental Status Examination - Cognitive Function Orientation: Person, Place Attention: WNL Concentration: WNL Association: WNL Fund of Knowledge: Poor Decription of patient's judgement and insights: poor insight and judgment - Mood Mood: Anxious - Affect Affect: Constricted, Depressed - Speech Speech: Loud - Formal Thought Process Formal Thought Process: Circumstantial Psychotic Thoughts and Behaviors: pt denied perceptual disturbances, non elicited - Suicidal Ideation Suicidal Ideation: No - Homicidal Ideation Homicidal Ideation: No Goal/Treatment Plan - Goal/Treatment Plan Need for Continued Stay: Severe depression anxiety, Discharge may exacerbated symptoms Progress Toward Problem(s) and Goals/Treatment Plan: c wellbutrin 150mg daily for depression neurontin 200mg tid seroquel 300mg qhs motivatonal and group therapy Estimated Date of D/C: 01/30/18
[2018-01-29] MEDS: buPROPion SR 150 MG TABLET PO SCH (09:26)
[2018-01-29] MEDS: Multivitamin With Minerals Tab PO SCH (09:26)
--- NOTE | 2018-01-29 09:55 | PCM.PYCHDC ---
Mental Status Examination - Mental Status Examination Orientation: Person, Place, Situation Memory: Intact Mood: Neutral Affect: Broad Speech: Appropriate Attention: WNL Concentration: WNL Association: WNL Fund of Knowledge: Poor Formal Thought Process: Circumstantial Description of patient's judgement and insight: poor insight and judgment Psychotic Thoughts and Behaviors: pt denied perceptual disturbances, non elicited Suicidal Ideation: No Current Homicidal Ideation?: No Discharge Summary - Discharge Note Reason for Hospitalization: pt requested help pt is 22 ys old male with previous diagnosis of polysubstance use and bipolar disorder, non compliant with medication or follow up, pt relapsed on opiates, cocaine and cannabis, starting feeling increasingly depressed, on day of evaluation, he started experiencing suicidal ideations with plan to jump off the bridge came to ER seeking help pt on unit depressed anhedonic with low energy, expressing passive suicidal ideations without active plan or intent on the unit denied homicidal ideations, denied command hallucinations Consultations:: List each consultation separately and include: 1. Reason for request. 2. Findings. 3. Follow-up Summary of Hospital Course include:: 1. Description of specific treatment plan utilized for patients during their course of treatmen. 2. Summarize the time- course for resolution of acute symptoms and/or regressed behaviors. 3. Describe issues identified and worked on during hospitalization. 4. Describe medication utilized. 5. Describe medical problems identified and treated. 6. Reassessment of suicide risk Summary of Hospital Course: pt on admission was started on clonidine for opiate withdrawal/ monitored for symptoms and signs of withdrawal , pt presented with depressed , labile mood seroquel was started and uptitrated to 300mg qhs wellbutrin was started for depression and for history of ADD, it was uptitrated to 150mg neurontinn was started for anxiety increased to 200mg tid motivational and group therapy provided pt on discharge mental status was stable, denied suicidal or homicidal ideations , denied perceptual disturbances, no reported side effects of medications follow up was arranged by social service agency director at outpatient [facility] program - Diagnosis (1) Depression Current Visit: Yes Status: Acute - Final Diagnosis (DSM 5) Condition upon Discharge: STABLE DSM 5: bipolar disorder mixed severe without psychotic features opiate use disorder cannabis use disorder stimulant use disorder cocaine use disorder Disposition: HOME/ ROUTINE Follow-up Treatment Plan: c wellbutrin 150mg daily for depression neurontin 200mg tid seroquel 300mg qhs motivatonal and group therapy Prescriptions/Medication Reconciliation: buPROPion SR [Wellbutrin SR 150 MG] 150 mg PO DAILY 30 Days #30 tab Gabapentin [Neurontin] 200 mg PO TID 30 Days #90 cap QUEtiapine [SEROquel] 300 mg PO HS 30 Days #30 tab - Antipsychotic Medications Pt discharged on 2 or more routine antipsychotic medications: No
== END 2018-01-29 12:33 | disposition home or self-care (01) | DRG 885 ==
LOC: H.ER 15:22 → H.ERHOLD 19:54 → H.PSYCH 21:55
PROVIDERS: ADMIT Psychiatry & Neurology Psychiatry; ATTEND Psychiatry & Neurology Psychiatry
PROC: GZHZZZZ Group Psychotherapy (ICD-10-PCS; principal; 2018-01-22)
PROC: GZ58ZZZ Individual Psychotherapy, Cognitive-Behavioral (ICD-10-PCS; 2018-01-22)
PROC: HZ52ZZZ Individual Psychotherapy for Substance Abuse Treatment, Cognitive-Behavioral (ICD-10-PCS; 2018-01-22)
DX: F31.63 Bipolar disorder, current episode mixed, severe, without psychotic features (principal); F11.23 Opioid dependence with withdrawal; R45.851 Suicidal ideations; F14.14 Cocaine abuse with cocaine-induced mood disorder; F12.90 Cannabis use, unspecified, uncomplicated; F15.10 Other stimulant abuse, uncomplicated; Z91.14 Patient's other noncompliance with medication regimen; Z91.19 Patient's noncompliance with other medical treatment and regimen; F17.210 Nicotine dependence, cigarettes, uncomplicated; F41.9 Anxiety disorder, unspecified; I10 Essential (primary) hypertension; Z87.442 Personal history of urinary calculi; Z91.5 Personal history of self-harm

== ENCOUNTER 2018-03-04 09:00 | Emergency (ER) | payer MEDICAID, OTHER ==
[2018-03-04 09:01] VITALS: BMI 25.7
[2018-03-04 09:35] VITALS: RESP 16; O2SAT 100
[2018-03-04] MEDS ORDERED: Sodium Chloride 0.9% 1,000 ML IV STA (09:43)
[2018-03-04 10:17] LABS: BASO # 0.1 K/uL (0.0-0.2); BASO % 0.5 % (0.0-2.0); EOS # 0.1 K/uL (0.0-0.7); EOS % 1.1 % (0.0-4.0); HEMOGLOBIN 13.8 g/dL (12.0-18.0); LYMPH # 2.1 K/uL (1.0-4.3); LYMPH % 22.1 % (20.0-40.0); MEAN CELL VOLUME 88.7 fl (80.0-94.0); MEAN CORPUSCULAR HEMOGLOBIN 30.4 pg (27.0-31.0); MEAN CORPUSCULAR HGB CONC 34.3 g/dL (33.0-37.0); MEAN PLATELET VOLUME 7.1 fl (7.2-11.7); MONO # 0.9 K/uL (0.0-0.8); MONO % 9.6 % (0.0-10.0); NEUT # 6.5 K/uL (1.8-7.0); NEUT % 66.7 % (50.0-75.0); RBC 4.54 Mil/uL (4.40-5.90); RED CELL DISTRIBUTION WIDTH 15.2 % (11.5-14.5); WHITE BLOOD COUNT 9.7 K/uL (4.8-10.8)
--- NOTE | 2018-03-04 10:24 | ED PDOC ---
HPI: Male Pain Time Seen by Provider: 03/04/18 09:21 Chief Complaint (Nursing): Male Genitourinary Chief Complaint (Provider): Back Pain History Per: Patient History/Exam Limitations: no limitations Onset/Duration Of Symptoms: Days Current Symptoms Are (Timing): Still Present Associated Symptoms: Back Pain. denies: Fever, Nausea, Vomiting, Diarrhea, Constipation, Urinary Symptoms Alleviating Factors: None Additional Complaint(s): 22 year old male with a past medical history of chronic kidney disorder ( diagnosed with kidney stones 6 times in past) presents to the emergency room complaining of flank pain. Patient reports that the pain is constant and radiates from his back into his abdomen. Denies dysuria, testicular pain, chest pain, nausea, vomiting, diarrhea. Patient further states that he has also been having left ear pain x2 days. He reports that he has a history of left sided ear infections. Denies fever, cough, nasal congestion. Of note: Patient is currently taking multiple psychotropic medications for bipolar disorder Past Medical History Reviewed: Historical Data, Nursing Documentation, Vital Signs Vital Signs: Last Vital Signs Temp 98 F 03/04/18 09:33 Pulse 99 H 03/04/18 09:33 Resp 16 03/04/18 09:33 BP 135/93 H 03/04/18 09:33 Pulse Ox 100 03/04/18 09:33 - Medical History PMH: Anxiety, Bipolar Disorder, Depression, Kidney Stones Denies: Diabetes, Hepatitis, HIV, Seizures, Sexually Transmitted Disease Other PMH: ear infections - Surgical History Surgical History: No Surg Hx - Family History Family History: States: Unknown Family Hx - Immunization History Hx Tetanus Toxoid Vaccination: No Hx Influenza Vaccination: No Hx Pneumococcal Vaccination: No - Home Medications Home Medications: Ambulatory Orders Medication Instructions Recorded Gabapentin [Neurontin] 200 mg PO TID 30 Days #90 cap 01/29/18 QUEtiapine [SEROquel] 300 mg PO HS 30 Days #30 tab 01/29/18 buPROPion SR [Wellbutrin SR 150 MG] 150 mg PO DAILY 30 Days #30 tab 01/29/18 Amoxicillin 875 mg PO Q8 5 Days tablet 03/04/18 - Allergies Allergies/Adverse Reactions: Allergies Allergy/AdvReac Type Severity Reaction Status Date / Time No Known Allergies Allergy Verified 01/22/18 06:18 Review of Systems ROS Statement: Except As Marked, All Systems Reviewed And Found Negative Constitutional: Negative for: Fever, Chills, Weight loss ENT: Positive for: Ear Pain (left). Negative for: Nose Congestion Respiratory: Negative for: Cough Gastrointestinal: Positive for: Abdominal Pain. Negative for: Nausea, Vomiting , Diarrhea, Constipation Genitourinary Male: Negative for: Dysuria, Scrotal Pain, Penile Pain Musculoskeletal: Positive for: Back Pain (flank pain) Physical Exam - Reviewed Nursing Documentation Reviewed: Yes Vital Signs Reviewed: Yes - Physical Exam Appears: Positive for: Non-toxic, No Acute Distress Head Exam: Positive for: ATRAUMATIC, NORMAL INSPECTION, NORMOCEPHALIC Skin: Positive for: Normal Color, Warm, Dry. Negative for: Rash Eye Exam: Positive for: Normal appearance, EOMI, PERRL ENT: Positive for: Other (L ear with wax around TM; no gross blood or erythema; R ear clear). Negative for: Nasal Congestion, Tonsillar Exudate, Tonsillar Swelling Neck: Positive for: Normal, Painless ROM, Supple, Decreased ROM Cardiovascular/Chest: Positive for: Regular Rate, Rhythm, Chest Non Tender. Negative for: Murmur, Tachycardia Respiratory: Positive for: Normal Breath Sounds. Negative for: Rales, Rhonchi, Wheezing, Respiratory Distress Gastrointestinal/Abdominal: Positive for: Normal Exam, Bowel Sounds, Soft. Negative for: Tenderness, Mass, Guarding, Rebound Back: Positive for: L CVA Tenderness, Other (left flank tenderness). Negative for: R CVA Tenderness Extremity: Positive for: Normal ROM, Tenderness (left sided abdominal tenderness ). Negative for: Deformity, Swelling Neurologic/Psych: Positive for: Alert, Oriented - Laboratory Results Result Diagrams: 03/04/18 10:09 03/04/18 10:09 Interpretation Of Abn Labs: 24 bun - ECG O2 Sat by Pulse Oximetry: 100 (RA) Pulse Ox Interpretation: Normal - Progress ED Course And Treament: CT: Mild left hydronephrosis with possible ureteropelvic junction obstruction. No obstructing calculus identified. Nonobstructing 2 mm left mid renal calculus. No other significant abnormality. 1130: Stable. Tolerated PO. Pain free. AAOx3. Found taking needles and equipment from the room. Police notified. 1156: Spoke with Dr. Puentes. Made aware of findings, presentation, history, and obstruction findings. Wants pt. to fu outpt. Nonemergent. 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 Medical Decision Making Medical Decision Makin Initial Impression 22 year old male presenting with left sided flank pain Initial Plan: * CT ABD & PELVIS * CMP * Udip * CBC NS 1000 mls IV 1000 mls/hr * Toradol 15 mg IVP * Reevaluation Documented by Falguni Millard acting as a scribe for Rommel Kitchen MD. All medical record entries made by the Scribe were at my direction and personally dictated by me. I have reviewed the chart and agree that the record accurately reflects my personal performance of the history, physical exam, medical decision making, and the department course for this patient. I have also personally directed, reviewed, and agree with the discharge instructions and disposition. Disposition - Clinical Impression Clinical Impression: Dehydration, Ureteral obstruction, Kidney stone, Otitis media - Patient ED Disposition Is Patient to be Admitted: No Counseled Patient/Family Regarding: Studies Performed, Diagnosis, Need For Followup - Disposition Referrals: Josiah Puentes Jr., MD [Staff Provider] - 03/05/18 formerly [facility] [Outside] - 03/05/18 Disposition: Routine/Home Disposition Time: 12:04 Condition: STABLE Additional Instructions: Return if not better in 3 days. Prescriptions: Amoxicillin 875 mg PO Q8 5 Days tablet Instructions: Ear Infections (Otitis Media), Kidney Stones in Adults, Urinary Obstruction (DC), Dehydration, Adult (DC)
[2018-03-04 10:29] LABS: ALB/GLOB RATIO 1.3 (1.0-2.1); ALBUMIN 4.2 g/dL (3.5-5.0); ALT/SGPT 38 U/L (21-72); AST/SGOT 53 U/L (17-59); BLOOD UREA NITROGEN 24 mg/dl (9-20); CALCIUM 9.6 mg/dL (8.4-10.2); GFR AFRICAN-AMERICAN > 60; GFR NON-AFRICAN AMERICAN > 60
--- NOTE | 2018-03-04 11:08 | CT ---
PROCEDURE: CT Abdomen and Pelvis without intravenous contrast HISTORY: R/O stone COMPARISON: 08/03/2016 TECHNIQUE: Without contrast.. Contrast dose: 0 Radiation dose: Total exam DLP = 340.31 mGy-cm. This CT exam was performed using one or more of the following dose reduction techniques: Automated exposure control, adjustment of the mA and/or kV according to patient size, and/or use of iterative reconstruction technique. FINDINGS: LOWER THORAX: Unremarkable. LIVER: Unremarkable. No gross lesion or ductal dilatation. GALLBLADDER AND BILE DUCTS: Partially contracted. No calcified gallstones. PANCREAS: Unremarkable. No gross lesion or ductal dilatation. SPLEEN: Unremarkable. ADRENALS: Unremarkable. No mass. KIDNEYS AND URETERS: Mild left hydronephrosis. Extrarenal left renal pelvis. Transition to normal ureteral diameter at the level of the ureteropelvic junction without evidence of obstructing calculus. There is a 2 mm nonobstructing left upper pole calculus not evident on prior examination. There is no right renal calculus. There is no renal mass. VASCULATURE: Unremarkable. No aortic aneurysm. BOWEL: Sigmoid diverticulosis. No evidence of diverticulitis. No bowel obstruction. No significant retained feces. APPENDIX: Unremarkable. Normal appendix. PERITONEUM: Unremarkable. No free fluid. No free air. LYMPH NODES: Unremarkable. No enlarged lymph nodes. BLADDER: Suboptimally distended. No gross abnormality. REPRODUCTIVE: Normal prostate. BONES: No acute fracture. OTHER FINDINGS: None. IMPRESSION: Mild left hydronephrosis with possible ureteropelvic junction obstruction. No obstructing calculus identified. Nonobstructing 2 mm left mid renal calculus. No other significant abnormality.
[2018-03-04 12:29] VITALS: BP 125/80; PULSE 75; TEMP 97.8
== END 2018-03-04 12:29 | disposition home or self-care (01) ==
LOC: H.ER 09:00
DX: E86.0 Dehydration (principal); N13.5 Crossing vessel and stricture of ureter without hydronephrosis; Z87.442 Personal history of urinary calculi; N20.0 Calculus of kidney; H66.92 Otitis media, unspecified, left ear; Z86.59 Personal history of other mental and behavioral disorders
CPT/HCPCS: 74176; 80053; 85025; 96361; 96374; 99283; J1885; J7040

== ENCOUNTER 2018-03-14 10:35 | Emergency (ER) | payer BC, MEDICAID, OTHER ==
[2018-03-14 10:45] VITALS: BMI 21.6
[2018-03-14 10:46] VITALS: RESP 16
[2018-03-14 10:52] VITALS: BP 163/83; PULSE 98; TEMP 98.1; O2SAT 100
--- NOTE | 2018-03-14 10:56 | ED PDOC ---
Upper Extremity Pain/Injury Time Seen by Provider: 03/14/18 10:44 Chief Complaint (Nursing): Upper Extremity Problem/Injury History Per: Patient Onset/Duration Of Symptoms: Other (5 months) Current Symptoms Are (Timing): Intermittent Episodes Severity: Mild Additional Complaint(s): Intermittent tingling right arm x 5 months. H/o fx clavicle right side in Nov. Has had sxs intermittently since then. Past Medical History Vital Signs: Last Vital Signs Temp 98.1 F 03/14/18 10:51 Pulse 98 H 03/14/18 10:51 Resp 16 03/14/18 10:51 BP 163/83 H 03/14/18 10:51 Pulse Ox 100 03/14/18 10:51 - Medical History PMH: Anxiety, Bipolar Disorder, Depression, HTN (no meds), Kidney Stones, Chronic Kidney Disease Denies: Diabetes, Hepatitis, HIV, Seizures, Sexually Transmitted Disease - Family History Family History: States: Unknown Family Hx - Immunization History Hx Tetanus Toxoid Vaccination: No Hx Influenza Vaccination: No Hx Pneumococcal Vaccination: No - Home Medications Home Medications: Ambulatory Orders Medication Instructions Recorded Gabapentin [Neurontin] 200 mg PO TID 30 Days #90 cap 01/29/18 buPROPion SR [Wellbutrin SR 150 MG] 150 mg PO DAILY 30 Days #30 tab 01/29/18 QUEtiapine [SEROquel] 100 mg PO BID 03/13/18 QUEtiapine [SEROquel] 400 mg PO QPM 03/13/18 Naproxen [Naprosyn] 500 mg PO Q12H #20 tab 03/14/18 - Allergies Allergies/Adverse Reactions: Allergies Allergy/AdvReac Type Severity Reaction Status Date / Time No Known Allergies Allergy Verified 03/13/18 11:48 Review of Systems Constitutional: Negative for: Fever Musculoskeletal: Positive for: Other (Arm tingling) Physical Exam - Physical Exam Appears: Positive for: Non-toxic, No Acute Distress Skin: Positive for: Normal Color, Warm, DRY Pulses-Radial (L): 2+ Pulses-Radial (R): 2+ Extremity: Positive for: Other (Nl cap refill upper ext bilat) Neurologic/Psych: Positive for: Alert, Oriented. Negative for: Motor/Sensory Deficits - ECG O2 Sat by Pulse Oximetry: 100 Disposition - Clinical Impression Clinical Impression: Radiculopathy of arm - Patient ED Disposition Is Patient to be Admitted: No Counseled Patient/Family Regarding: Diagnosis, Need For Followup, Rx Given - Disposition Referrals: Diogo Sweeney MD [Staff Provider] - Disposition Time: 10:56 Condition: FAIR Prescriptions: Naproxen [Naprosyn] 500 mg PO Q12H #20 tab Instructions: Radiculopathy Forms: [employer] (Kazakh)
== END 2018-03-14 11:41 | disposition home or self-care (01) ==
LOC: H.ER 10:35
DX: M54.12 Radiculopathy, cervical region (principal)

== ENCOUNTER 2018-03-15 06:43 | Emergency (ER) | payer OTHER ==
[2018-03-15 06:43] VITALS: BMI 21.6
[2018-03-15 06:56] VITALS: TEMP 98.6; O2SAT 96
--- NOTE | 2018-03-15 07:34 | ED PDOC ---
HPI: Psych/Substance Abuse Time Seen by Provider: 03/15/18 07:00 Chief Complaint (Nursing): Psychiatric Evaluation Chief Complaint (Provider): Psychiatric Evaluation History Per: Patient History/Exam Limitations: no limitations Onset/Duration Of Symptoms: Days (x 1 week) Current Symptoms Are (Timing): Still Present Suicide/Self Injury Attempted (Context): None Associated Symptoms: Suicidal Thoughts Additional Complaint(s): 22 year old male with a history of anxiety, substance abuse,? schizoaffective disorder and bipolar disorder presents to the ED complaining of hearing voices that are telling him to hurt himself for the last week. Upon arrival to the ED, patient was placed on 1:1 observation as a safety precaution. He has no other medical complaints. PMD: none provided Past Medical History Reviewed: Historical Data, Nursing Documentation, Vital Signs Vital Signs: Last Vital Signs Temp 98.6 F 03/15/18 06:51 Pulse 102 H 03/15/18 06:51 Resp 17 03/15/18 06:51 BP 150/95 H 03/15/18 06:51 Pulse Ox 96 03/15/18 06:51 - Medical History PMH: Anxiety, Bipolar Disorder, Depression, HTN (no meds), Kidney Stones, Chronic Kidney Disease Denies: Diabetes, Hepatitis, HIV, Seizures, Sexually Transmitted Disease - Surgical History Surgical History: No Surg Hx - Family History Family History: States: Unknown Family Hx - Social History Current smoker - smoking cessation education provided: Yes Drugs: Cannabis - Immunization History Hx Tetanus Toxoid Vaccination: No Hx Influenza Vaccination: No Hx Pneumococcal Vaccination: No - Home Medications Home Medications: Ambulatory Orders Medication Instructions Recorded Gabapentin [Neurontin] 200 mg PO TID 30 Days #90 cap 01/29/18 buPROPion SR [Wellbutrin SR 150 MG] 150 mg PO DAILY 30 Days #30 tab 01/29/18 QUEtiapine [SEROquel] 100 mg PO BID 03/13/18 QUEtiapine [SEROquel] 400 mg PO QPM 03/13/18 Naproxen [Naprosyn] 500 mg PO Q12H #20 tab 03/14/18 - Allergies Allergies/Adverse Reactions: Allergies Allergy/AdvReac Type Severity Reaction Status Date / Time No Known Allergies Allergy Verified 03/13/18 11:48 Review of Systems ROS Statement: Except As Marked, All Systems Reviewed And Found Negative Psych: Positive for: Suicidal ideation Physical Exam - Reviewed Nursing Documentation Reviewed: Yes Vital Signs Reviewed: Yes - Physical Exam Appears: Positive for: Well, No Acute Distress (pt sleeping in bed) Head Exam: Positive for: ATRAUMATIC, NORMOCEPHALIC Skin: Positive for: Normal Color, Warm, DRY Eye Exam: Positive for: Normal appearance Neck: Positive for: Normal Cardiovascular/Chest: Positive for: Regular Rate, Rhythm. Negative for: Murmur Respiratory: Positive for: Normal Breath Sounds. Negative for: Respiratory Distress Gastrointestinal/Abdominal: Positive for: Normal Exam, Soft. Negative for: Tenderness Extremity: Positive for: Normal ROM Neurologic/Psych: Positive for: Alert, Oriented (x 3) - Laboratory Results Result Diagrams: 03/15/18 08:07 03/15/18 08:07 - ECG ECG: Positive for: Interpreted By Me, Viewed By Me ECG Rhythm: Positive for: Sinus Tachycardia Rate: 103 O2 Sat by Pulse Oximetry: 96 (RA) Pulse Ox Interpretation: Normal Medical Decision Making Medical Decision Making: Time: 07:16 Impression: suicidal ideation Initial Plan: --EKG --Acetaminophen --Alcohol serum --BMP --Urine drug --Salicylate --CBC with differentials --1:1 observation --urinalysis positive cocaine and marijuana. pt denies chest pain. ekg normal. Patient is medically cleared for psychiatric evaluation. 1015 1:1 discountinued Time: 10:50 -Patient was seen and evaluated by crisis. Admitted to them that nothing was medically or psychiatrially wrong but that he had nowhere to go. He is stable for discharge. Diagnosis is homelessness as per Dr. Oconnell. Scribe Attestation: Documented by Delmi Guzman, acting as a scribe for Jose Dolan MD Provider Scribe Attestation: All medical record entries made by the Scribe were at my direction and personally dictated by me. I have reviewed the chart and agree that the record accurately reflects my personal performance of the history, physical exam, medical decision making, and the department course for this patient. I have also personally directed, reviewed, and agree with the discharge instructions and disposition. Disposition - Clinical Impression Clinical Impression: Homelessness - Patient ED Disposition Is Patient to be Admitted: No Counseled Patient/Family Regarding: Need For Followup - Disposition Referrals: [facility] [Outside] [facility] [Outside] Disposition: Routine/Home Disposition Time: 10:20 Condition: STABLE Additional Instructions: follow up with your doctor in 1-2 days return to the ED with any worsening or concerning symptoms Forms: [employer] (Georgian)
[2018-03-15 08:28] LABS: BASO % 0.4 % (0.0-2.0); EOS # 0.3 K/uL (0.0-0.7); HEMOGLOBIN 13.4 g/dL (12.0-18.0); LYMPH # 2.6 K/uL (1.0-4.3); LYMPH % 28.2 % (20.0-40.0); MEAN CELL VOLUME 89.1 fl (80.0-94.0); MEAN CORPUSCULAR HEMOGLOBIN 30.1 pg (27.0-31.0); MEAN CORPUSCULAR HGB CONC 33.8 g/dL (33.0-37.0); MONO % 10.8 % (0.0-10.0); NEUT # 5.3 K/uL (1.8-7.0); NEUT % 57.6 % (50.0-75.0); NRBC % 0.1 % (0.0-0.0); RBC 4.45 Mil/uL (4.40-5.90); RED CELL DISTRIBUTION WIDTH 15.6 % (11.5-14.5); WHITE BLOOD COUNT 9.2 K/uL (4.8-10.8)
[2018-03-15 08:41] LABS: ACETAMINOPHEN < 10.0 ug/ml (10.0-30.0); SALICYLATE < 1.0 mg/dl
[2018-03-15 08:43] LABS: BLOOD UREA NITROGEN 18 mg/dl (9-20); CALCIUM 9.4 mg/dL (8.4-10.2); GFR AFRICAN-AMERICAN > 60; GFR NON-AFRICAN AMERICAN > 60
[2018-03-15 08:52] LABS: BENZODIAZEPINES, UR NEGATIVE (NEGATIVE); PHENCYCLIDINE, UR NEGATIVE (NEGATIVE); URINE AMORPHOUS SEDIMENT RARE /ul (<OCC); URINE BACTERIA RARE (<OCC); URINE BILIRUBIN NEGATIVE (NEGATIVE); URINE BLOOD NEGATIVE (NEGATIVE); URINE CLARITY CLOUDY (Clear); URINE COLOR YELLOW (YELLOW); URINE GLUCOSE (UA) NEG (Normal); URINE LEUKOCYTE ESTERASE NEG Leu/uL (Negative); URINE PROTEIN NEGATIVE (NEGATIVE); URINE UROBILINOGEN 0.2-1.0 mg/dL (0.2-1.0)
[2018-03-15 08:53] LABS: BARBITURATES, UR NEGATIVE (NEGATIVE); OPIATES, UR NEGATIVE (NEGATIVE)
[2018-03-15 11:19] VITALS: BP 145/90; RESP 18
--- NOTE | 2018-03-15 11:51 | CARD ---
APPROVED REPORT EKG Measurement Heart [id number] <Conclusion> Sinus tachycardia Otherwise normal ECG
[2018-03-15 12:30] VITALS: PULSE 103
== END 2018-03-15 11:10 | disposition home or self-care (01) ==
LOC: H.ER 06:43
DX: R45.851 Suicidal ideations (principal); Z59.0 Homelessness; F31.9 Bipolar disorder, unspecified; F41.9 Anxiety disorder, unspecified; I10 Essential (primary) hypertension; F17.200 Nicotine dependence, unspecified, uncomplicated; R00.0 Tachycardia, unspecified

== ENCOUNTER 2018-03-15 19:09 | Emergency (ER) | payer OTHER ==
[2018-03-15 19:09] VITALS: BMI 21.6
[2018-03-15 19:56] VITALS: BP 115/84; PULSE 87; RESP 16; TEMP 98.4; O2SAT 98
--- NOTE | 2018-03-15 20:23 | ED PDOC ---
HPI: Abdomen Time Seen by Provider: 03/15/18 20:00 Chief Complaint (Nursing): Abdominal Pain Chief Complaint (Provider): Left flank pain x 1 hour History Per: Patient History/Exam Limitations: no limitations Onset/Duration Of Symptoms: Days Outside of [place] travel?: No Current Symptoms Are (Timing): Still Present Associated Symptoms: denies: Fever, Chills, Nausea, Vomiting, Diarrhea, Loss Of Appetite, Back Pain, Chest Pain, Constipation, Urinary Symptoms Additional Complaint(s): 22 yo male with history of substance abuse and schizophrenia presents with left flank pain. PT states he has had kidney stones in the past. Pt requesting pain medications and CT scan of the abdomen. Past Medical History Reviewed: Historical Data, Nursing Documentation, Vital Signs Vital Signs: Last Vital Signs Temp 98.4 F 03/15/18 19:54 Pulse 87 03/15/18 19:54 Resp 16 03/15/18 19:54 BP 115/84 03/15/18 19:54 Pulse Ox 98 03/15/18 19:54 - Medical History PMH: Anxiety, Bipolar Disorder, Depression, HTN (no meds), Kidney Stones, Chronic Kidney Disease Denies: Diabetes, Hepatitis, HIV, Seizures, Sexually Transmitted Disease - Family History Family History: States: Unknown Family Hx - Immunization History Hx Tetanus Toxoid Vaccination: No Hx Influenza Vaccination: No Hx Pneumococcal Vaccination: No - Home Medications Home Medications: Ambulatory Orders Medication Instructions Recorded Gabapentin [Neurontin] 200 mg PO TID 30 Days #90 cap 01/29/18 buPROPion SR [Wellbutrin SR 150 MG] 150 mg PO DAILY 30 Days #30 tab 01/29/18 QUEtiapine [SEROquel] 100 mg PO BID 03/13/18 QUEtiapine [SEROquel] 400 mg PO QPM 03/13/18 Naproxen [Naprosyn] 500 mg PO Q12H #20 tab 03/14/18 - Allergies Allergies/Adverse Reactions: Allergies Allergy/AdvReac Type Severity Reaction Status Date / Time No Known Allergies Allergy Verified 03/13/18 11:48 Review of Systems ROS Statement: Except As Marked, All Systems Reviewed And Found Negative Constitutional: Negative for: Fever, Chills Gastrointestinal: Negative for: Constipation, Melena Genitourinary Male: Negative for: Hematuria, Penile Discharge Musculoskeletal: Positive for: Other Neurological: Negative for: Headache, Dizziness Physical Exam - Reviewed Nursing Documentation Reviewed: Yes Vital Signs Reviewed: Yes - Physical Exam Appears: Positive for: Well, Non-toxic, No Acute Distress Head Exam: Positive for: ATRAUMATIC, NORMAL INSPECTION, NORMOCEPHALIC Skin: Positive for: Normal Color, Warm, DRY Eye Exam: Positive for: Normal appearance ENT: Positive for: Normal ENT Inspection Neck: Positive for: Normal, Painless ROM Cardiovascular/Chest: Positive for: Regular Rate, Rhythm Respiratory: Positive for: CNT, Normal Breath Sounds Gastrointestinal/Abdominal: Positive for: Normal Exam, Soft. Negative for: Tenderness Back: Positive for: Normal Inspection Extremity: Positive for: Normal ROM Neurologic/Psych: Positive for: Alert, Oriented - ECG O2 Sat by Pulse Oximetry: 98 Medical Decision Making Medical Decision Makin - Pt sleeping comfortable in bed. Urine dip without blood. Disposition - Clinical Impression Clinical Impression: Left flank pain - Patient ED Disposition Is Patient to be Admitted: No Counseled Patient/Family Regarding: Diagnosis, Need For Followup - Disposition Disposition: Routine/Home Disposition Time: 20:24 Condition: STABLE Instructions: Low Back Pain in Adults
== END 2018-03-15 21:17 | disposition home or self-care (01) ==
LOC: H.ER 19:09
DX: R10.9 Unspecified abdominal pain (principal); F31.9 Bipolar disorder, unspecified; F41.9 Anxiety disorder, unspecified; I10 Essential (primary) hypertension; I12.9 Hypertensive chronic kidney disease with stage 1 through stage 4 chronic kidney disease, or unspecified chronic kidney disease

== ENCOUNTER 2018-04-17 18:39 | Emergency (ER) | payer BC, MEDICAID, OTHER ==
[2018-04-17 18:39] VITALS: BMI 21.6
[2018-04-17 18:50] VITALS: BP 138/92; PULSE 82; RESP 16; TEMP 99.3; O2SAT 98
--- NOTE | 2018-04-17 19:12 | ED PDOC ---
HPI: General Adult Time Seen by Provider: 04/17/18 19:10 Chief Complaint (Nursing): Med Refill Chief Complaint (Provider): MED REFILL History Per: Patient (22 Y/O MALE HERE WITH REQUESTING REFILL ON PSYCH MEDICATION. STATES HE WAS SEEN AT [facility] AND SPOKE WITH THERAPIST BUT WAS GIVEN AN APPOINTMENT NEXT WEEK. PATIENT DENIES ANY SI/HI.) Past Medical History Reviewed: Historical Data, Nursing Documentation, Vital Signs Vital Signs: Last Vital Signs Temp 99.3 F 04/17/18 18:47 Pulse 82 04/17/18 18:47 Resp 16 04/17/18 18:47 BP 138/92 H 04/17/18 18:47 Pulse Ox 98 04/17/18 19:13 - Medical History PMH: Anxiety, Bipolar Disorder, Depression, Fractures (R clavicle), HTN (no meds ), Kidney Stones, Chronic Kidney Disease Denies: Diabetes, Hepatitis, HIV, Seizures, Sexually Transmitted Disease - Family History Family History: States: Unknown Family Hx - Immunization History Hx Tetanus Toxoid Vaccination: No Hx Influenza Vaccination: Yes Hx Pneumococcal Vaccination: No - Home Medications Home Medications: Ambulatory Orders Medication Instructions Recorded Gabapentin [Neurontin] 200 mg PO TID 30 Days #90 cap 01/29/18 buPROPion SR [Wellbutrin SR 150 MG] 150 mg PO DAILY 30 Days #30 tab 01/29/18 QUEtiapine [SEROquel] 100 mg PO BID 03/13/18 QUEtiapine [SEROquel] 400 mg PO QPM 03/13/18 Naproxen [Naprosyn] 500 mg PO Q12H #20 tab 03/14/18 Gabapentin [Neurontin] 200 mg PO TID #21 capsule 04/12/18 Quetiapine Fumarate [Seroquel] 300 mg PO HS #7 tablet 04/12/18 buPROPion [Bupropion HCl] 150 mg PO DAILY #14 tab 04/12/18 - Allergies Allergies/Adverse Reactions: Allergies Allergy/AdvReac Type Severity Reaction Status Date / Time No Known Allergies Allergy Verified 04/12/18 11:33 Review of Systems ROS Statement: Except As Marked, All Systems Reviewed And Found Negative Physical Exam - Reviewed Nursing Documentation Reviewed: Yes Vital Signs Reviewed: Yes - Physical Exam Appears: Positive for: Well, Non-toxic, No Acute Distress Head Exam: Positive for: ATRAUMATIC, NORMAL INSPECTION, NORMOCEPHALIC Skin: Positive for: Normal Color, Warm, DRY Eye Exam: Positive for: EOMI, Normal appearance, PERRL ENT: Positive for: Normal ENT Inspection Neck: Positive for: Normal, Painless ROM Cardiovascular/Chest: Positive for: Regular Rate, Rhythm Respiratory: Positive for: CNT, Normal Breath Sounds Gastrointestinal/Abdominal: Positive for: Normal Exam, Soft Back: Positive for: Normal Inspection Extremity: Positive for: Normal ROM Neurologic/Psych: Positive for: Alert, Oriented - ECG O2 Sat by Pulse Oximetry: 98 Disposition - Clinical Impression Clinical Impression: Medication refill - Disposition Disposition: Routine/Home Disposition Time: 19:12 Condition: FAIR Additional Instructions: FOLLOW UP [facility] [address] [facility] [place] [place] AT April AT 11:30am Instructions: Where to Get Help Paying for Your Prescriptions
== END 2018-04-17 20:13 | disposition home or self-care (01) ==
LOC: H.ER 18:39
DX: Z76.0 Encounter for issue of repeat prescription (principal)